=== PATIENT | female | born 1935 | race Caucasian/White ===

== ENCOUNTER 2016-08-19 15:08 | Outpatient (CLI) | payer MEDICARE | END 2016-08-19 15:09 | disposition home or self-care (01) | DX: M79.604 Pain in right leg (principal); I83.90 Asymptomatic varicose veins of unspecified lower extremity; M79.605 Pain in left leg ==

== ENCOUNTER 2016-10-25 11:20 | Outpatient (CLI) | payer MEDICARE ==
--- NOTE | 2016-10-25 12:36 | XRAY Report ---
THREE-VIEW LUMBAR SPINE: 10/25/2016 CLINICAL INDICATION: Back pain. FINDINGS: AP, lateral, coned-down views of the lumbar spine demonstrate moderate degenerative disc a nd facet disease. There is no evidence of fracture or subluxation. Vascular calcifications and post operative changes are noted in the abdomen. IMPRESSION: MODERATE DEGENERATIVE CHANGES. JOB #: [id number] EXT JOB #:[id number]
== END 2016-10-25 11:21 | disposition home or self-care (01) ==
LOC: DI 11:20
PROVIDERS: ATTEND Internal Medicine
DX: M51.36 Other intervertebral disc degeneration, lumbar region (principal); M47.896 Other spondylosis, lumbar region
CPT/HCPCS: 72100

== ENCOUNTER 2017-09-26 13:08 | Outpatient (CLI) | payer MEDICARE ==
--- NOTE | 2017-09-26 18:11 | MRI Report ---
EXAM: MRI LUMBAR SPINE WITHOUT CONTRAST EXAM DATE: 09/26/2017 01:45 PM. CLINICAL HISTORY: Sciatica. COMPARISON: Radiographs 10/25/[address] abdomen and pelvis 01/15/2015. TECHNIQUE: Multiplanar, multisequence T1-weighted and fluid-sensitive sequences of the lumbar spine f rom T11 to S1 without contrast. Other: None. FINDINGS: Spinal Cord: The conus terminates at T12. The conus medullaris and cauda equina are unremarkable. Alignment: Mild convex right curvature of mid lumbar spine. No spondylolisthesis. Bone Marrow: Transitional anatomy noted with partial sacralization of L5 bilaterally. No gross fractu res or bone lesions. Moderate fatty endplate changes and minimal diskogenic edema at L3-L4, L4-L5, an d L5-S1. Disk Levels/Facets: Disk desiccation throughout. Moderate disk height loss at L3-L4 through L5-S1. T10-T11: Sagittal images only. Minimal disk bulge. Mild bilateral facet hypertrophy. No stenosis. T11-T12: Sagittal images only. Mild bilateral facet hypertrophy. No stenosis. T12-L1: Sagittal images only. Minimal disk bulge. Mild bilateral facet and ligamentum flavum hypertro phy. Minimal central canal stenosis. L1-L2: Small bilobed disk bulge. Mild bilateral facet and ligamentum flavum hypertrophy. Minimal cent ral canal stenosis. Mild bilateral neural foraminal stenosis. L2-L3: Small bilobed disk bulge. Moderate bilateral facet and ligamentum flavum hypertrophy. Minimal central canal stenosis. Mild bilateral neural foraminal stenosis. L3-L4: Small broad-based disk osteophyte complex, asymmetric to the left where there is a foraminal c omponent. Moderate bilateral facet and ligamentum flavum hypertrophy. Mild central canal stenosis. Di sk and left facet contacts and may impinge the traversing left L4 nerve root. Mild right and moderate left neural foraminal stenosis. L4-L5: Small disk osteophyte complex. Moderate bilateral facet and ligamentum flavum hypertrophy. Mil d central canal stenosis. Disk and hypertrophied facets contact and may impinge the traversing right L5 nerve root. Mild bilateral neural foraminal stenosis. L5-S1: Small disk osteophyte complex. Mild bilateral facet hypertrophy. No stenosis. Musculature: Moderate fatty atrophy in the paraspinous and gluteal muscles. Minimal reactive edema ad jacent to the lower lumbar facets. Other: The partially visualized retroperitoneum is unremarkable. Degenerative changes partially visua lized at the sacroiliac joints. IMPRESSION: 1. Mild to moderate degenerative disk and facet changes. 2. Disk osteophyte complex and facet hypertrophy at L3-L4 result in mild central canal stenosis. Disk and left facet contact and may impinge the traversing left L4 nerve root. 3. Disk osteophyte complex and facet hypertrophy at L4-L5 result in mild central canal stenosis. Disk and hypertrophied right facet contacts and may impinge the traversing right L5 nerve root. 4. Varying degrees of neural foraminal stenosis, moderate at L3-L4 on the left. Comment: The following findings are so common in adults without low back pain that while we report th eir presence, they must be interpreted with caution and in the context of the clinical situation. (Re jose Murcia et al, Spine 2001) Prevalence of findings in patients without low back pain: Disk degeneration (any evidence): 92% Disk desiccation/T2 signal loss: 83% Disk height loss: 56% Disk bulge: 64% Disk protrusion: 32% Annular tear/high intensity zone: 38% [facility] Referring Provider Line: [phone] SITE ID: [id number]
== END 2017-09-26 13:09 | disposition home or self-care (01) ==
LOC: DI 13:08
PROVIDERS: ATTEND Internal Medicine
DX: M54.30 Sciatica, unspecified side (principal); M48.061 Spinal stenosis, lumbar region without neurogenic claudication
CPT/HCPCS: 72148

== ENCOUNTER 2018-09-25 11:22 | Outpatient (CLI) | payer MEDICARE ==
[2018-09-25 11:47] LABS: BASOPHILS % (AUTO) 0.5 %; EOSINOPHILS # (AUTO) 0.1 10^3/uL (0.0-0.7); EOSINOPHILS % (AUTO) 1.2 %; HGB - HEMOGLOBIN 12.7 g/dL (12.0-16.0); LYMPHOCYTES # (AUTO) 3.5 10^3/uL (1.5-3.5); LYMPHOCYTES % (AUTO) 36.1 %; MEAN CORPUSCULAR HEMOGLOBIN 28.3 pg (27.0-31.0); MEAN CORPUSCULAR HGB CONC 32.9 g/dL (32.0-36.0); MEAN CORPUSCULAR VOLUME 86.2 fL (81.0-99.0); MEAN PLATELET VOLUME 8.9 fL (7.9-10.8); MONOCYTES # (AUTO) 0.9 10^3/uL (0.0-1.0); MONOCYTES % (AUTO) 9.3 %; NEUTROPHILS # (AUTO) 5.1 10^3/uL (1.5-6.6); NEUTROPHILS % (AUTO) 52.9 %; PLT - PLATELET COUNT 260 10^3/uL (130-450); RED BLOOD COUNT 4.49 10^6/uL (4.20-5.40); RED CELL DISTRIBUTION WIDTH 13.5 % (12.0-15.0); WHITE BLOOD COUNT 9.6 x10^3/uL (4.8-10.8)
[2018-09-25 11:56] LABS: CREATININE 0.8 mg/dL (0.4-1.0)
== END 2018-09-25 11:23 | disposition home or self-care (01) ==
LOC: LAB 11:22
PROVIDERS: ATTEND Internal Medicine
DX: R53.83 Other fatigue (principal); R05 Cough; R07.89 Other chest pain; R00.2 Palpitations; R13.10 Dysphagia, unspecified; Z91.89 Other specified personal risk factors, not elsewhere classified; R60.9 Edema, unspecified; R06.01 Orthopnea
CPT/HCPCS: 36415; 80048; 83880; 84443; 85025

== ENCOUNTER 2018-09-29 09:14 | Outpatient (CLI) | payer MEDICARE ==
--- NOTE | 2018-09-29 10:50 | XRAY Report ---
Reason: COUGH, DYSPHAGIA ASPIRATION, PRESSURE IN CHEST Procedure Date: 09/29/2018 Accession Number: [id number] / [id number] Procedure: XR - Chest 2 View X-Ray CPT Code: 82540 FULL RESULT: EXAM: CHEST RADIOGRAPHY EXAM DATE: 09/29/2018 09:14 AM. CLINICAL HISTORY: Cough, dysphagia, aspiration, pressure in chest. COMPARISON: CHEST 2 VIEW PA/LAT 03/02/2015 3:26 PM. TECHNIQUE: 2 views. FINDINGS: Lungs/Pleura: No focal opacities evident. No pleural effusion. No pneumothorax. Mild hypoinflation with basilar vascular crowding. Mediastinum: Heart and mediastinal contours are unremarkable. Other: None. IMPRESSION: Normal 2-view chest radiography. [facility]
== END 2018-09-29 09:15 | disposition home or self-care (01) ==
LOC: DI 09:14
PROVIDERS: ATTEND Internal Medicine
DX: R05 Cough (principal)
CPT/HCPCS: 71046

== ENCOUNTER 2018-10-26 10:14 | Outpatient (CLI) | payer MEDICARE ==
--- NOTE | 2018-10-26 13:13 | CARDIAC PROCEDURE NOTE ---
DATE OF SERVICE: 10/26/2018 Physician: Ijeoma Rodriges MD EXERCISE CARDIOLITE PROTOCOL: Modified Manolo. TIME: Four minutes 23 seconds, METs was 3.10. REASON FOR STOPPING TEST: "Tired." HEART RATE RESPONSE: 70 to maximum 129. Blood pressure response 181/83 to maximum 196/87. No chest pain. No dyspnea. ST SEGMENT RESPONSE: No significant ST-segment elevations or depressions ARRHYTHMIAS: Occasional PVC detected. IMPRESSION: No symptoms. No significant EKG changes. CONCLUSION: Await imaging studies. TD: 10/26/2018 12:57 MTDD
--- NOTE | 2018-11-04 08:48 | Nuclear Medicine Report ---
Reason: PRESSURE IN CHEST, DYSPNEA Procedure Date: 10/26/2018 Accession Number: [id number] / [id number] Procedure: NM - Myocardial Perfusion STR/RST CPT Code: FULL RESULT: EXAM: SINGLE-ISOTOPE EXERCISE STRESS TEST. SINGLE-ISOTOPE AND ONE-DAY REST/STRESS MYOCARDIAL PERFUSION SCANS WITH TOMOGRAPHIC IMAGING, QUANTITATIVE ANALYSIS, WALL MOTION ANALYSIS AND CALCULATION OF EJECTION FRACTION. EXAM DATE: 10/26/2018 02:52 PM. CLINICAL HISTORY: PRESSURE IN CHEST, DYSPNEA. COMPARISON: None available. TECHNIQUE: A rest myocardial perfusion scan was done with tomography after the intravenous administration of 10.3 mCi Tc-99m sestamibi. After an appropriate delay, a treadmill exercise stress was performed according to department protocol. The patient exercised for 4 minutes and 23 seconds. The maximum heart rate was 129 bpm, which was 93% of the maximum predicted heart rate of 138 bpm. At approximately peak heart rate, 44.1 mCi of Tc-99m sestamibi was injected for stress myocardial perfusion scan. Motion correction was applied when appropriate. Gated tomographic images were obtained for wall motion analysis and computation of left ventricular ejection fraction. FINDINGS: On visual analysis, no convincing significant fixed or reversible perfusion defects. Computer analysis. Summed stress score 1 Summed rest score 0 Summed difference score 1 Wall motion analysis demonstrates no focal wall motion abnormality. The left ventricular end-diastolic volume is 47 cc. The left ventricular end-systolic volume is 3 cc. The left ventricular ejection fraction is calculated to be 93%. IMPRESSION: 1. No scintigraphic findings to indicate myocardial ischemia. Negative for infarct. 2. Normal left ventricular ejection fraction of 3. Normal segmental and global wall motion. 4. Normal left ventricular cavity size, no change with stress. 5. Based on computer analysis, normal study with no ischemia. Please correlate findings with stress ECG tracings and procedure notes. [facility] ADDENDUM: 11/04/18 10:48 This exam is dated 10/26/2018 but was made available for interpretation 11/04/2018
== END 2018-10-26 10:15 | disposition home or self-care (01) ==
LOC: DI 10:14
PROVIDERS: ATTEND Internal Medicine
DX: R13.10 Dysphagia, unspecified (principal); R07.89 Other chest pain; R06.00 Dyspnea, unspecified
CPT/HCPCS: 78452; 93017; A9500

== ENCOUNTER 2018-11-02 09:39 | Outpatient (CLI) | payer MEDICARE ==
--- NOTE | 2018-11-02 11:41 | XRAY Report ---
Reason: COUGH Procedure Date: 11/02/2018 Accession Number: [id number] / [id number] Procedure: FL - Modified Barium Swallow W/SP CPT Code: FULL RESULT: EXAM: MODIFIED BARIUM SWALLOW EXAM DATE: 11/02/2018 11:00 AM. CLINICAL HISTORY: Cough. COMPARISON: None. TECHNIQUE: Under the direction of speech pathology, patient swallowed various consistencies of barium under lateral fluoroscopic observation of the neck. Fluoroscopy Time: 45 seconds. Number of Images: 87. FINDINGS: Swallowing Mechanism: Delayed initiation, otherwise normal oral phase and swallowing reflex. Airway Protection: Normal epiglottic motion. No episodes of tracheal penetration or aspiration with all consistencies of barium. Pharynx: Normal. No significant vallecular or piriform sinus contrast pooling. Other: None. IMPRESSION: Delayed initiation with otherwise normal swallowing. No aspiration identified. [facility]
== END 2018-11-02 09:40 | disposition home or self-care (01) ==
LOC: DI 09:39
PROVIDERS: ATTEND Internal Medicine
DX: R13.10 Dysphagia, unspecified (principal); R05 Cough
CPT/HCPCS: 74230

== ENCOUNTER 2019-02-04 09:47 | Emergency (ER) | payer MEDICARE ==
[2019-02-04 10:12] LABS: BILIRUBIN,URINE NEGATIVE (NEGATIVE); GLUCOSE, URINE (UA) NEGATIVE (NEGATIVE); KETONES,URINE (UA) NEGATIVE (NEGATIVE); LEUKOCYTE ESTERASE, URINE TRACE (NEGATIVE); NITRITE,URINE NEGATIVE (NEGATIVE); OCCULT BLOOD,URINE NEGATIVE (NEGATIVE); PH,URINE 5.5 PH (5.0-7.5); PROTEIN,URINE NEGATIVE (NEGATIVE); UROBILINOGEN,URINE 0.2 (NORMAL) E.U./dL (NORMAL)
[2019-02-04 10:13] LABS: CLARITY,URINE CLEAR (CLEAR)
[2019-02-04 10:21] LABS: BACTERIA,URINE Rare /HPF (None Seen); RBC,URINE None Seen /HPF (0-5); SQUAMOUS EPITHELIAL CELL,UR MOD Squamous (<= Few)
[2019-02-04] MEDS ORDERED: LIDOCAINE 1% 2 ML VIAL MC ONE (10:29)
[2019-02-04] MEDS ORDERED: cefTRIAXone 1 GM VIAL IM STA (10:29)
--- NOTE | 2019-02-04 10:31 | ED Physician Documentation ---
PD HPI FEMALE - Stated complaint Stated Complaint: BACK PX - Chief complaint Chief Complaint: UTI - History obtained from History obtained from: Patient, Family - History of Present Illness Timing - onset: How many weeks ago (2) Timing - duration: Weeks (2) Timing - details: Gradual onset, Still present Associated symptoms: Back pain, Dysuria, Urinary frequency Contributing factors: Hysterectomy Similar symptoms before: Diagnosis (UTI) Recently seen: Not recently seen - Additional information Additional information: Previously well 83-year-old female has developed urinary urgency and frequency she has some lower abdominal pain that is now radiating to her back. She has some nausea associated with this she has not had fever or vomiting. Review of Systems Constitutional: denies: Fever Eyes: denies: Decreased vision Cardiac: denies: Pedal edema Respiratory: denies: Cough GI: reports: Abdominal Pain, Nausea. 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, Other HEENT: Cataracts - Present Medications Home Medications: Ambulatory Orders Medication Instructions Recorded Confirmed Clopidogrel [Plavix] 75 mg PO DAILY 06/10/15 10/25/15 Omeprazole [PriLOSEC] 40 mg PO DAILY 06/10/15 10/27/15 Ciprofloxacin HCl [Cipro] 250 mg PO BID #14 tablet 02/04/19 - Allergies Allergies/Adverse Reactions: Allergies Allergy/AdvReac Type Severity Reaction Status Date / Time aspirin Allergy CONJUNCTIVI Verified 02/04/19 09:50 TIS Sulfa (Sulfonamide Allergy SWELLING Verified 02/04/19 09:50 Antibiotics) Oral Narcotics AdvReac Intermediate Severe Uncoded 07/19/15 10:41 nausea and constipation - Social History Does the pt smoke?: No Smoking Status: Never smoker Does the pt drink ETOH?: No Does the pt have substance abuse?: No - Immunizations Immunizations are current?: No - POLST Patient has POLST: No PD ED PE NORMAL - Vitals Vital signs reviewed: Yes (hypertensive ) - General General: Alert and oriented X 3, No acute distress, Well developed/nourished - HEENT HEENT: Atraumatic, PERRL, EOMI - Respiratory Respiratory: No respiratory distress - Back Back: No CVA TTP, No spinal TTP, Other (There is mild tendernes to the lower lumbar spine ) - Derm Derm: Normal color, Warm and dry, No rash - Extremities Extremities: No deformity, No edema - Neuro Neuro: Alert and oriented X 3, 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, No motor deficit, No sensory deficit, Normal speech Eye Opening: Spontaneous Motor: Obeys Commands Verbal: Oriented GCS Score: 15 - Psych Psych: Normal mood, Normal affect Results - Vitals Vitals: Vital Signs - 24 hr 02/04/19 09:50 Temperature 36.6 C Heart Rate 84 Respiratory 16 Rate Blood Pressure 185/80 H O2 Saturation 100 Oxygen O2 Source [Without Activity] Room air O2 Source Room air - Labs Labs: Laboratory Tests 02/04/19 10:00 Urine Color YELLOW Urine Clarity CLEAR Urine pH 5.5 Ur Specific [place] <=1.005 Urine Protein NEGATIVE Urine Glucose (UA) NEGATIVE Urine Ketones NEGATIVE Urine Occult Blood NEGATIVE Urine Nitrite NEGATIVE Urine Bilirubin NEGATIVE Urine Urobilinogen 0.2 (NORMAL) Ur Leukocyte Esterase TRACE H Urine RBC None Seen Urine WBC 6-10 H Ur Squamous Epith Cells MOD Squamous H Urine Bacteria Rare Ur Microscopic Review INDICATED Urine Culture Comments NOT INDICATED PD MEDICAL DECISION MAKING - ED course Complexity details: considered differential, d/w patient, d/w family ED course: 83-year-old female with urinary tract symptoms has appearance of urinary tract infection on evaluation of her urine and she is allergic to sulfa and has a history of septal defect. She is given Rocephin here in the emergency department we will place her on a course of Cipro. Departure - Departure Disposition: 01 Home, Self Care Clinical Impression: Urinary tract infection Qualifiers: Urinary tract infection type: acute cystitis Hematuria presence: without hematuria Qualified Code(s): N30.00 - Acute cystitis without hematuria Condition: Stable Instructions: ED UTI Cystitis Female Follow-Up: Ijeoma Rodriges MD [Primary Care Provider] - Prescriptions: Ciprofloxacin HCl [Cipro] 250 mg PO BID #14 tablet
[2019-02-04 10:50] VITALS: BP 138/81
== END 2019-02-04 10:53 | disposition home or self-care (01) ==
LOC: ED 09:47
DX: N30.00 Acute cystitis without hematuria (principal); I10 Essential (primary) hypertension; Z86.79 Personal history of other diseases of the circulatory system; Z88.2 Allergy status to sulfonamides
CPT/HCPCS: 81001; 81003; 87086; 96372; 99283

== ENCOUNTER 2019-04-28 22:16 | Outpatient (CLI) | payer MEDICARE | END 2019-04-28 22:17 | disposition critical access hospital (66) | LOC: EMS 22:16 | PROVIDERS: ATTEND Surgery | DX: R10.30 Lower abdominal pain, unspecified (principal); Z90.49 Acquired absence of other specified parts of digestive tract | CPT/HCPCS: A0425; A0429 ==

== ENCOUNTER 2019-04-28 22:34 | Emergency (ER) | payer MEDICARE ==
--- NOTE | 2019-04-28 22:46 | ED Physician Documentation ---
History of Present Illness - Stated complaint Stated Complaint: ABD PAIN - Chief complaint Chief Complaint: Abd Pain - Additonal information Additional information: This is an 84-year-old female with a history Appendectomy, cholecystectomy, hysterectomy, past bowel resections who presents with abdominal pain for 4 hours. Patient states that this week she has had some intermittent abdominal cramping, but it has been temporary and resolved. At around 18:30 she developed sudden onset of sharp abdominal pain which is located diffusely but more so in her periumbilical region. This was associate with some nausea but she did not vomit. She has continued to have normal bowel movements without blood. She states that the pain was severe and persistent so she came to the emergency department, now it has calmed down is a 5/10.No chest pain, no shortness of breath, no dysuria. No fever. Review of Systems Constitutional: denies: Fever Cardiac: denies: Chest pain / pressure Respiratory: denies: Dyspnea GI: reports: Abdominal Pain : denies: Dysuria Skin: denies: Rash Neurologic: denies: Generalized weakness Immunocompromised: denies: Immunocompromised PD PAST MEDICAL HISTORY - Past Medical History Past Medical History: Yes Cardiovascular: Hypertension, High cholesterol, Murmur Respiratory: None Endocrine/Autoimmune: None GI: GERD : Other HEENT: Dental implants Psych: Anxiety Musculoskeletal: Osteoarthritis, Osteoporosis Derm: None - Past Surgical History Past Surgical History: Yes General: Cholecystectomy, Appendectomy, Bowel surgery, Colonoscopy, EGD 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, Other HEENT: Cataracts - Present Medications Home Medications: Ambulatory Orders Medication Instructions Recorded Confirmed Clopidogrel [Plavix] 75 mg PO DAILY 06/10/15 10/25/15 Omeprazole [PriLOSEC] 40 mg PO DAILY 06/10/15 10/27/15 Ciprofloxacin HCl [Cipro] 250 mg PO BID #14 tablet 02/04/19 - Allergies Allergies/Adverse Reactions: Allergies Allergy/AdvReac Type Severity Reaction Status Date / Time aspirin Allergy CONJUNCTIVI Verified 04/28/19 22:36 TIS Sulfa (Sulfonamide Allergy SWELLING Verified 04/28/19 22:36 Antibiotics) Oral Narcotics AdvReac Intermediate Severe Uncoded 04/28/19 22:36 nausea and constipation - Social History Does the pt smoke?: No Smoking Status: Never smoker Does the pt drink ETOH?: No Does the pt have substance abuse?: No - Immunizations Immunizations are current?: No - POLST Patient has POLST: No PD ED PE NORMAL - Vitals Vital signs reviewed: Yes - General General: Alert and oriented X 3, No acute distress - HEENT HEENT: PERRL - Neck Neck: Supple, no meningeal sign - Cardiac Cardiac: RRR, No murmur - Respiratory Respiratory: Clear bilaterally - Abdomen Abdomen: Soft, Non distended, Other (Mild tenderness in the periumbilical region and mid abdomen, no Guarding) - Derm Derm: Warm and dry - Extremities Extremities: No deformity - Neuro Neuro: Alert and oriented X 3 - Psych Psych: Normal mood, Normal affect Results - Vitals Vitals: Vital Signs - 24 hr 04/28/19 04/28/19 04/29/19 22:36 22:40 00:56 Temperature 36.6 C Heart Rate 84 74 76 Respiratory 14 14 23 Rate Blood Pressure 175/96 H 175/96 H 143/79 H O2 Saturation 96 96 95 04/29/19 01:25 Temperature Heart Rate 80 Respiratory 16 Rate Blood Pressure 141/62 H O2 Saturation 94 Oxygen O2 Source [] Room air O2 Source Room air - Labs Labs: Laboratory Tests 04/28/19 04/28/19 04/29/19 22:55 22:55 00:36 WBC 10.1 RBC 4.25 Hgb 12.2 Hct 37.1 MCV 87.3 MCH 28.7 MCHC 32.9 RDW 13.0 Plt Count 243 MPV 10.8 Neut # (Auto) 5.9 Lymph # (Auto) 2.9 [place] # (Auto) 1.0 Eos # (Auto) 0.2 Baso # (Auto) 0.0 Absolute Nucleated RBC 0.00 Nucleated RBC % 0.0 Sodium 137 Potassium 3.7 Chloride 103 Carbon Dioxide 25 Anion Gap 9.0 BUN 18 Creatinine 0.7 Estimated GFR (MDRD) 80 L Glucose 124 H Calcium 8.8 Total Bilirubin 0.8 AST 16 ALT 16 Alkaline Phosphatase 56 Total Protein 6.7 Albumin 3.8 Globulin 2.9 Albumin/Globulin Ratio 1.3 Lipase 26 Urine Color YELLOW Urine Clarity CLEAR Urine pH 6.5 Ur Specific [place] <=1.005 Urine Protein NEGATIVE Urine Glucose (UA) NEGATIVE Urine Ketones NEGATIVE Urine Occult Blood NEGATIVE Urine Nitrite NEGATIVE Urine Bilirubin NEGATIVE Urine Urobilinogen 0.2 (NORMAL) Ur Leukocyte Esterase NEGATIVE Ur Microscopic Review NOT INDICATED Urine Culture Comments NOT INDICATED - Rads (name of study) CT abd/pelvis W Radiology: Other (Small bilateral Fat-containing inguinal hernias, mild dilatation of fluid-filled mid and distal small bowel loops without evidence of an abrupt transition, more compatible with enteritis than obstruction) PD MEDICAL DECISION MAKING - ED course Complexity details: considered differential (Obstruction, partial bowel obstruction, enteritis, pancreatitis, gastritis, peptic ulcer disease) ED course: Patient is non-toxic appearing, mildly uncomfortable on my exam. Her abdomen is mildly tender in the mid abdomen. IV was inserted, labs are drawn and she was given Zofran. Her CBC is unremarkable with no leukocytosis or anemia. Her abdominal panel is unremarkable, lipase is normal, urinalysis is negative for infection. CT of the abdomen pelvis with contrast was obtained which showed some mildly dilated small bowel loops, but no transition points, no convincing signs of obstruction or other acute abdominal pathology. On repeat examination patient continues to feel well, her abdomen is benign, and she is not nauseated. I discussed the results, and explained that I am not sure exactly what the cause of her abdominal pain was, it might be that she has an early enteritis, it is also possible that she had the start of partial small bowel obstruction which has since improved. Given that she is feeling well I think she is reasonable for trial of outpatient care, I prescribed Zofran and recommended adequate fluids. I reviewed return precautions with the patient including worsening or recurrent abdominal pain, vomiting, fever, or other concerning symptoms. I also discussed primary care follow-up. Patient agreed with this plan and was discharged home in the care of her family Departure - Departure Disposition: 01 Home, Self Care Clinical Impression: Abdominal pain Qualifiers: Abdominal location: generalized Qualified Code(s): R10.84 - Generalized abdominal pain Condition: Good Instructions: Abdominal Pain Follow-Up: Ijeoma Rodriges MD [Primary Care Provider] - Within 1 week Comments: You were seen today for abdominal pain. Your CT scan shows some mildly dilated loops of bowel, which may be secondary to an infection, or is possible that you may have had a mild obstruction. If you are having vomiting despite nausea medication, increasing abdominal pain, blood in your stool, or any other concerning symptoms, return to the emergency department. Discharge Date/Time: 04/29/19 01:26
[2019-04-28] MEDS ORDERED: fentaNYL 100 MCG/2 ML VIAL IVP STA (22:52)
[2019-04-28] MEDS ORDERED: ONDANSETRON 4 MG/2 ML VIAL IVP STA (22:52)
[2019-04-28 22:59] LABS: BASOPHILS % (AUTO) 0.4 %; EOSINOPHILS # (AUTO) 0.2 10^3/uL (0.0-0.7); EOSINOPHILS % (AUTO) 2.1 %; HGB - HEMOGLOBIN 12.2 g/dL (12.0-16.0); LYMPHOCYTES # (AUTO) 2.9 10^3/uL (1.5-3.5); LYMPHOCYTES % (AUTO) 28.5 %; MEAN CORPUSCULAR HEMOGLOBIN 28.7 pg (27.0-31.0); MEAN CORPUSCULAR HGB CONC 32.9 g/dL (32.0-36.0); MEAN CORPUSCULAR VOLUME 87.3 fL (81.0-99.0); MEAN PLATELET VOLUME 10.8 fL (7.9-10.8); MONOCYTES % (AUTO) 9.7 %; NEUTROPHILS # (AUTO) 5.9 10^3/uL (1.5-6.6); NEUTROPHILS % (AUTO) 58.8 %; PLT - PLATELET COUNT 243 10^3/uL (130-450); RED BLOOD COUNT 4.25 10^6/uL (4.20-5.40); WHITE BLOOD COUNT 10.1 x10^3/uL (4.8-10.8)
[2019-04-28] MEDS ORDERED: IOVERSOL 320 100 ML VIAL IVP ONE ×2 (23:03→23:40)
[2019-04-28 23:14] LABS: ALBUMIN 3.8 g/dL (3.2-5.5); ALBUMIN/GLOBULIN RATIO 1.3 (1.0-2.2); BILIRUBIN,TOTAL 0.8 mg/dL (0.2-1.0); CALCIUM 8.8 mg/dL (8.5-10.3); CREATININE 0.7 mg/dL (0.4-1.0); TOTAL PROTEIN 6.7 g/dL (6.7-8.2)
--- NOTE | 2019-04-29 00:05 | CT Report ---
Reason: hx bowel resections, sharp abdominal pain for 4hrs Procedure Date: 04/28/2019 Accession Number: [id number] / [id number] Procedure: CT - Abdomen/Pelvis W CPT Code: Final Report FULL RESULT: EXAM: CT ABDOMEN AND PELVIS EXAM DATE: 04/28/2019 11:41 PM. CLINICAL HISTORY: Hx bowel resections, sharp abdominal pain for 4hrs. COMPARISONS: ABDOMEN/PELVIS W/ 01/15/2015 3:43 PM. TECHNIQUE: Routine helical CT imaging was performed through the abdomen and pelvis. IV contrast: OPTI 320 100ML. Enteric contrast: No. Reconstructions: Coronal and sagittal. In accordance with CT protocol optimization, one or more of the following dose reduction techniques were utilized for this exam: automated exposure control, adjustment of mA and/or KV based on patient size, or use of iterative reconstructive technique. FINDINGS: Lung Bases: Mild bronchiectasis and basilar atelectasis. Liver: Stable hepatic cysts. Gallbladder/Bile Ducts: Postoperative changes of cholecystectomy. No biliary dilatation. Spleen: Normal. Pancreas: Normal. Adrenal Glands: Normal. Kidneys: Normal. No masses or hydronephrosis. Peritoneal Cavity/Bowel: There is mild dilatation of fluid-filled mid and distal small bowel loops, without abrupt transition, more compatible with enteritis than mechanical obstruction. No colonic dilatation. No adenopathy, free gas, or free fluid. Postoperative changes in the sigmoid colon. Pelvic Organs: Postoperative changes of hysterectomy. No pelvic adenopathy or free fluid. Vasculature: Atherosclerotic calcification. No aneurysm. Bones: Degenerative changes. Other: Small bilateral inguinal hernias, containing fat. IMPRESSION: Mild dilatation of fluid-filled mid and distal small bowel loops, without evidence of an abrupt transition, more compatible with enteritis than a mechanical obstruction. Postoperative changes. [facility]
[2019-04-29 01:02] LABS: BILIRUBIN,URINE NEGATIVE (NEGATIVE); GLUCOSE, URINE (UA) NEGATIVE (NEGATIVE); KETONES,URINE (UA) NEGATIVE (NEGATIVE); LEUKOCYTE ESTERASE, URINE NEGATIVE (NEGATIVE); NITRITE,URINE NEGATIVE (NEGATIVE); OCCULT BLOOD,URINE NEGATIVE (NEGATIVE); PH,URINE 6.5 PH (5.0-7.5); PROTEIN,URINE NEGATIVE (NEGATIVE); UROBILINOGEN,URINE 0.2 (NORMAL) E.U./dL (NORMAL)
[2019-04-29 01:06] LABS: CLARITY,URINE CLEAR (CLEAR)
[2019-04-29] MEDS ORDERED: ONDANSETRON ODT 4 MG Prepack 2 TL PRN (01:13)
[2019-04-29 01:26] VITALS: BP 141/62
== END 2019-04-29 01:26 | disposition home or self-care (01) ==
LOC: EDUNIT# → ED 22:34
DX: R10.84 Generalized abdominal pain (principal); R11.0 Nausea; K40.20 Bilateral inguinal hernia, without obstruction or gangrene, not specified as recurrent; I10 Essential (primary) hypertension; Z90.49 Acquired absence of other specified parts of digestive tract; Z79.02 Long term (current) use of antithrombotics/antiplatelets
CPT/HCPCS: 36415; 74177; 80053; 81003; 83690; 85025; 96374; 99284; Q9967; 81001; 87086

== ENCOUNTER 2019-05-20 10:40 | Day surgery (SDC) | payer MEDICARE ==
[~2019-05-20 10:40] MED LIST: SODIUM/POTASSIUM/MAG SULFATES 354 ML PREP KIT PO SCH
[2019-05-20] MEDS ORDERED: LACTATED RINGERS 1,000 ML IV ONE (10:45)
[2019-05-20] MEDS ORDERED: fentaNYL 100 MCG/2 ML VIAL IVP ONE (12:08)
[2019-05-20] MEDS ORDERED: ONDANSETRON 4 MG/2 ML VIAL IVP ONE (12:08)
[2019-05-20] MEDS ORDERED: MIDAZOLAM 2 MG/2 ML VIAL IVP ONE (12:08)
[2019-05-20] MEDS ORDERED: LIDO GARGLE 30 ML BOTTLE PO ONE (12:31)
[2019-05-20 13:33] VITALS: BP 106/60
== END 2019-05-20 10:41 | disposition home or self-care (01) ==
LOC: SDS 10:40
PROVIDERS: ATTEND Surgery
PROC: 0DJD8ZZ Inspection of Lower Intestinal Tract, Via Natural or Artificial Opening Endoscopic (ICD-10-PCS; 2019-05-20)
PROC: 0DB98ZX Excision of Duodenum, Via Natural or Artificial Opening Endoscopic, Diagnostic (ICD-10-PCS; principal; 2019-05-20 12:30)
PROC: 0DB68ZX Excision of Stomach, Via Natural or Artificial Opening Endoscopic, Diagnostic (ICD-10-PCS; 2019-05-20 12:30)
DX: K29.70 Gastritis, unspecified, without bleeding (principal); K31.89 Other diseases of stomach and duodenum; K44.9 Diaphragmatic hernia without obstruction or gangrene; K52.9 Noninfective gastroenteritis and colitis, unspecified; Z90.49 Acquired absence of other specified parts of digestive tract; Z79.02 Long term (current) use of antithrombotics/antiplatelets; Z90.710 Acquired absence of both cervix and uterus; Z98.0 Intestinal bypass and anastomosis status

== ENCOUNTER 2019-06-04 10:13 | Outpatient (CLI) | payer MEDICARE ==
[2019-06-04] MEDS ORDERED: BARIUM SULFATE 135 ML BOTTLE PO ONE (14:31)
[2019-06-04] MEDS ORDERED: SIMETHICONE/SOD BICARB/CIT AC 1 EACH PACKET PO ONE (14:31)
[2019-06-04] MEDS ORDERED: BARIUM SULFATE 700 MG TABLET PO ONE (14:31)
[2019-06-04] MEDS ORDERED: BARIUM SULFATE 148 GM POWDER PO ONE (14:31)
--- NOTE | 2019-06-04 15:27 | XRAY Report ---
Reason: ABD BLOATING Procedure Date: 06/04/2019 Accession Number: [id number] / [id number] Procedure: FL - UGI SBFT W/O Air CPT Code: Final Report FULL RESULT: EXAM: UPPER GI WITH SMALL BOWEL FOLLOW-THROUGH EXAM DATE: 06/04/2019 12:57 PM. CLINICAL HISTORY: Abdominal bloating. COMPARISONS: XR ACUTE ABDOMEN SERIES 01/17/2009 3:14 AM. TECHNIQUE: Routine double contrast upper gastrointestinal small bowel follow-through technique. Fluoroscopy Time: 45 seconds. Number of fluoroscopy images: 23. FINDINGS: Swallowing Mechanism: Normal oral phase and swallowing reflex. No episodes of tracheal penetration or aspiration evident. Esophageal Motility: Normal peristaltic stripping wave. Esophageal Mucosa: Normal. No ulcerations or masses. Gastroesophageal Junction: No hernia. Meaningful spontaneous reflux. Stomach: Normal gastric mucosal pattern. No ulcers identified. Duodenum: Normal duodenal mucosal pattern. No ulcers or diverticula identified. Jejunum: Normal mucosal pattern. No masses or obstruction. Ileum: Normal mucosal pattern. No masses or obstruction. The ileocecal valve is patent and competent with passage of contrast into the cecum. Other: Rapid transit of bowel content from stomach to large bowel. IMPRESSION: Spontaneous reflux and rapid progression of contrast to the large bowel, 15 minutes. [facility]
== END 2019-06-04 10:14 | disposition home or self-care (01) ==
LOC: DI 10:13
PROVIDERS: ATTEND Surgery
DX: R14.0 Abdominal distension (gaseous) (principal); K21.9 Gastro-esophageal reflux disease without esophagitis
CPT/HCPCS: 74245; A9270

== ENCOUNTER 2019-06-30 10:20 | Outpatient (CLI) | payer MEDICARE | END 2019-06-30 10:21 | disposition home or self-care (01) | LOC: DI 10:20 | PROVIDERS: ATTEND Internal Medicine | DX: I48.3 Typical atrial flutter (principal); I48.91 Unspecified atrial fibrillation | CPT/HCPCS: 93306 ==

== ENCOUNTER 2019-10-01 08:07 | Day surgery (SDC) | payer MEDICARE ==
[~2019-10-01 08:07] MED LIST changes: +CEFAZOLIN SODIUM IN 0.9 % NACL 2 GM/100 ML BAG IV ONE; -SODIUM/POTASSIUM/MAG SULFATES 354 ML PREP KIT PO SCH
[2019-10-01] MEDS ORDERED: ACETAMINOPHEN 1,000 MG/100 ML 100 ML IV ONE (08:08)
[2019-10-01] MEDS ORDERED: ONDANSETRON 4 MG/2 ML VIAL IVP ONE (08:08)
[2019-10-01] MEDS ORDERED: DEXAMETHASONE 4 MG/ML VIAL IVP ONE (08:08)
[2019-10-01] MEDS ORDERED: fentaNYL 100 MCG/2 ML VIAL IVP ONE (08:08)
[2019-10-01] MEDS ORDERED: NEOSTIGMINE 1 MG/1 ML 10 ML MDV IVP ONE (08:08)
[2019-10-01] MEDS ORDERED: ePHEDrine 50 MG/ML VIAL IVP ONE (08:08)
[2019-10-01] MEDS ORDERED: METOPROLOL 5 MG/5 ML VIAL IVP ONE (08:08)
[2019-10-01] MEDS ORDERED: GLYCOPYRROLATE 1 MG/5 ML VIAL IVP ONE (08:08)
[2019-10-01] MEDS ORDERED: PROPOFOL 200 MG/20 ML VIAL IVP ONE (08:08)
[2019-10-01] MEDS ORDERED: ROCURONIUM 50 MG/5 ML VIAL IVP ONE (08:08)
[2019-10-01] MEDS ORDERED: BUPIVACAINE 0.5% PF 30 ML VIAL ONE (08:15)
[2019-10-01] MEDS ORDERED: LIDOCAINE 1%-EPI 1:100000 20 ML MDV ONE (08:15)
[2019-10-01] MEDS ORDERED: ceFAZolin 1 GM VIAL ONE (08:15)
--- NOTE | 2019-10-01 08:18 | ANESTHESIA ---
Pre-Anesthesia VS, & Labs - Diagnosis bilateral inguinal hernia's - Procedure bilateral inguinal hernia repair Vital Signs: Temp Pulse Resp BP Pulse Ox 36.5 C 74 16 153/84 H 100 10/01/19 08:07 10/01/19 08:07 10/01/19 08:07 10/01/19 08:07 10/01/19 08:07 Height 5 ft 3 in Weight (kg) 75 kg Body Mass Index 27.4 - NPO >8 hours - Is Patient ?: No Home Medications and Allergies Home Medications: Ambulatory Orders Carvedilol 12.5 mg PO DAILY 10/01/19 Clopidogrel [Plavix] 75 mg PO DAILY 06/10/15 Allergies/Adverse Reactions: Allergies Allergy/AdvReac Type Severity Reaction Status Date / Time aspirin Allergy CONJUNCTIVI Verified 07/09/19 14:08 TIS Sulfa (Sulfonamide Allergy SWELLING Verified 07/09/19 14:08 Antibiotics) Anes History & Medical History - Anesthetic History Anesthesia Complications: reports: No previous complications - Medical History Cardiovascular: reports: Hypertension, High cholesterol, Murmur, Arrhythmia Pulmonary: reports: None Gastrointestinal: reports: GERD, Hiatal hernia Urinary: reports: Other Musculoskeletal: reports: Osteoarthritis, Osteoporosis, Chronic back pain Endocrine/Autoimmune: reports: None Blood Disorders: reports: None Skin: reports: None Smoking Status: Never smoker - Surgical History General: Cholecystectomy, Appendectomy, Bowel surgery, Colonoscopy, EGD Eyes Ears Nose Throat (EENT): Cataracts Urologic: Bladder surgery Gynecologic: Hysterectomy, Other Orthopedic: Knee replacement Results - EKG Results EKG Comparison: Reviewed EKG, Normal EKG - Echo Results Echo Results: Report reviewed (normal) Exam General: Alert Dental: WNL Mouth Opening: Greater than 4 Fingerbreadths Mallampati classification: II Respiratory: Lungs clear Cardiovascular: Regular rate, Normal S1, Normal S2 Plan Anesthesia Type: General Consent for Procedure(s) Verified and Reviewed: Yes Code Status: Attempt Resuscitation ASA classification: 2-Mild systemic disease Is this case an emergency?: No
[2019-10-01] MEDS ORDERED: LACTATED RINGERS 1,000 ML IV ONE ×2 (08:23→11:12)
[2019-10-01] MEDS ORDERED: ceFAZolin 1 GM VIAL IR ONE (08:28)
[2019-10-01] MEDS ORDERED: LIDOCAINE 1%-EPI 1:100000 20 ML MDV SUBQ ONE ×2 (08:30)
[2019-10-01] MEDS ORDERED: BUPIVACAINE 0.5% PF 30 ML VIAL INFIL ONE ×2 (08:32)
--- NOTE | 2019-10-01 10:50 | OPERATIVE REPORT ---
Operative Report - General Procedure Date: 10/01/19 Planned Procedure: Bilateral inguinal hernia repair Pre-Op Diagnosis: Bilateral inguinal hernias with intermittent obstruction Procedure Performed: Bilateral inguinal hernia repair Post Op Diagnosis: Bilateral Direct Inguinal Hernias - Procedure Note Primary Surgeon: Lars Anesthesia Provider: LORIN Finch Anesthesia Technique: General ET tube, Local, Regional block Pathology: None IV Fluids (mL): 700 Estimated Blood Loss (mL): 10 Findings: Bilateral large direct inguinal defects Complications: None apparent - Other Other Information/Narrative: After obtaining informed consent, the patient is brought to the operating room and placed in the supine position on the operating table. Following successful induction of general endotracheal anesthesia, appropriate padding of all bony prominences, and placement of appropriate monitors, the abdomen was prepped and draped in the standard surgical fashion. A timeout was held per scope protocol. All elements of the surgical safety checklist were followed before, during, and after the procedure. We began the procedure by infiltrating a mixture of local anesthetics medial to the anterior superior iliac spine on the left. This was done to create an ileal inguinal nerve block. We then selected a site for an incision in the right lower quadrant just superior and lateral to the left pubic tubercle. This area was anesthetized with additional local anesthetic and an incision was created here.The incision was carried down through the skin and subcutaneous tissue to reveal the fascia of the external oblique aponeurosis. Retractor was placed and the aponeurosis was opened in direction of its fibers. The ilioinguinal nerve was immediately identified. We continued by identifying the round ligament and the ilioinguinal nerve. The round ligament was divided between hemostats and ligated. The defect was identified lateral to the inferior epigastric vessels. The hernia contents were placed back into the abdominal cavity. We elected to repair the hernia with a large Prolene hernia system mesh implant. This was dipped in Ancef containing solution and then deployed into the defect. The posterior leaflet was straightened and flattened in the preperitoneal space. The more inferior aspect of the anterior leaflet was then sewn to Carlos Alberto's ligament medially. Laterally it was tucked under the external beak aponeurosis. The wound was checked for hemostasis and irrigated with warm saline solution. It was aspirated free of all fluid and particulate matter. The extra oblique aponeurosis was then closed with a running locking Vicryl suture Mey's fascia was closed with Vicryl suture and Monocryl stitches were placed in the skin. We continued the procedure on the right. Again, began the procedure by infiltrating a mixture of local anesthetics medial to the anterior superior iliac spine on the right. This was done to create an ileal inguinal nerve block. We then selected a site for an incision in the right lower quadrant just superior and lateral to the right pubic tubercle. This area was anesthetized with additional local anesthetic and an incision was created here.The incision was carried down through the skin and subcutaneous tissue to reveal the fascia of the external oblique aponeurosis. Retractor was placed and the aponeurosis was opened in direction of its fibers. The ilioinguinal nerve was immediately identified. We continued by identifying the round ligament and the ilioinguinal nerve. The round ligament was divided between hemostats and ligated. The defect was identified lateral to the inferior epigastric vessels. The hernia contents were placed back into the abdominal cavity. We elected to repair the hernia with a large Prolene hernia system mesh implant. This was dipped in Ancef containing solution and then deployed into the defect. The posterior leaflet was straightened and flattened in the preperitoneal space. The more inferior aspect of the anterior leaflet was then sewn to Carlos Alberto's ligament medially. Laterally it was tucked under the external beak aponeurosis. The wound was checked for hemostasis and irrigated with warm saline solution. It was aspirated free of all fluid and particulate matter. The extra oblique aponeurosis was then closed with a running locking Vicryl suture Mey's fascia was closed with Vicryl suture and Monocryl stitches were placed in the skin. All sponge, needle, and instrument counts were correct at the conclusion of the case. The patient was allowed awaken from anesthesia without difficulty and taken to the postanesthesia care unit in good condition.
[2019-10-01] MEDS ORDERED: ACETAMINOPHEN 325 MG TABLET PO PRN (10:57)
[2019-10-01] MEDS ORDERED: IBUPROFEN 600 MG TABLET PO PRN (10:57)
[2019-10-01] MEDS ORDERED: oxyCODONE 5 MG TABLET PO PRN ×2 (10:57)
[2019-10-01] MEDS ORDERED: ONDANSETRON 4 MG/2 ML VIAL IVP PRN ×2 (10:57)
[2019-10-01 11:40] VITALS: BP 127/66
== END 2019-10-01 08:08 | disposition home or self-care (01) ==
LOC: SDS 08:07
PROVIDERS: ATTEND Surgery
PROC: 0YUA0JZ Supplement Bilateral Inguinal Region with Synthetic Substitute, Open Approach (ICD-10-PCS; principal; 2019-10-01 09:30)
DX: K40.20 Bilateral inguinal hernia, without obstruction or gangrene, not specified as recurrent (principal); I25.10 Atherosclerotic heart disease of native coronary artery without angina pectoris; I10 Essential (primary) hypertension
CPT/HCPCS: 49505; C1781; J0131; J0690; J7120

== ENCOUNTER 2020-07-03 15:07 | Outpatient (CLI) | payer MEDICARE ==
--- NOTE | 2020-07-03 15:52 | XRAY Report ---
PROCEDURE: Hip w/Pelvis 2-3V LT INDICATIONS: L HIP PAIN TECHNIQUE: AP pelvis with lateral view(s) of the bilateral hip(s). COMPARISON: None. FINDINGS: No fracture. Severe lumbar spondylosis partially visualized lateral curvature. Severe degenerative sc lerosis and spurring at the pubis symphysis. Mild bilateral hip joint generation. Scattered subchondr al sclerosis and spurring. Scattered vascular calcifications. IMPRESSION: [id number] bilateral hip joint generation. Severe lumbar spondylosis and facet arthropathy. Reviewed by: Alexis Vega MD on 07/03/2020 3:51 PM PST Approved by: Alexis Vega MD on 07/03/2020 3:51 PM PST Station ID: [id number]
== END 2020-07-03 15:08 | disposition home or self-care (01) ==
LOC: DI 15:07
PROVIDERS: ATTEND Internal Medicine
DX: M25.552 Pain in left hip (principal); M16.0 Bilateral primary osteoarthritis of hip; M47.816 Spondylosis without myelopathy or radiculopathy, lumbar region

== ENCOUNTER 2020-07-20 09:43 | Outpatient (CLI) | payer MEDICARE | END 2020-07-20 09:44 | disposition critical access hospital (66) | LOC: EMS 09:43 | PROVIDERS: ATTEND Emergency Medicine | DX: R53.1 Weakness (principal); M54.5 Low back pain | CPT/HCPCS: A0425; A0429 ==

== ENCOUNTER 2020-07-20 10:01 | Emergency (ER) | payer MEDICARE ==
[2020-07-20] MEDS ORDERED: SODIUM CHLORIDE 0.9% 1,000 ML IV STA ×2 (10:37)
--- NOTE | 2020-07-20 10:41 | ED Physician Documentation ---
History of Present Illness - Stated complaint Stated Complaint: BACK PX/WEAKNESS - Chief complaint Chief Complaint: Neuro - History obtained from History obtained from: Patient - History of Present Illness Timing: How many weeks ago (several weeks) Pain level max: 0 Pain level now: 0 - Additonal information Additional information: Patient is an 85-year-old female who presents to the emergency department stating that she has had generalized weakness for the past several weeks. She states that nothing makes it better or worse. She states that this started from taking muscle relaxers for back pain. She states that her back pain is much better now. She does however state that she just feels generally weak. She states nothing makes it better or worse. She is unable to be more specific about her symptoms. Review of Systems Ten Systems: 10 systems reviewed and negative Constitutional: denies: Fever, Chills Ears: denies: Ear pain Nose: denies: Rhinorrhea / runny nose, Congestion Throat: denies: Sore throat Cardiac: denies: Chest pain / pressure, Palpitations Respiratory: denies: Cough GI: denies: Abdominal Pain, Nausea, Vomiting, Diarrhea : denies: Dysuria Skin: denies: Rash Musculoskeletal: reports: Back pain (she states her back doesn't currently hurt). denies: Neck pain Neurologic: denies: Headache PD PAST MEDICAL HISTORY - Past Medical History Cardiovascular: Hypertension, High cholesterol, Murmur, Arrhythmia Respiratory: None Endocrine/Autoimmune: None GI: GERD, Hiatal hernia : Other HEENT: Chronic vision loss, Dental implants Psych: Anxiety Musculoskeletal: Osteoarthritis, Osteoporosis, Chronic back pain Derm: None - Past Surgical History Past Surgical History: Yes General: Cholecystectomy, Appendectomy, Bowel surgery, Colonoscopy, EGD Ortho: Knee replacement /EMERGENCY DEPARTMENT: Hysterectomy, Other HEENT: Cataracts - Present Medications Home Medications: Ambulatory Orders Medication Instructions Recorded Confirmed Clopidogrel [Plavix] 75 mg PO DAILY 06/10/15 07/20/20 Carvedilol 12.5 mg PO DAILY 10/01/19 07/20/20 oxyCODONE [Roxicodone] 5 mg PO Q4-6H PRN #20 tablet 10/01/19 07/20/20 - Allergies Allergies/Adverse Reactions: Allergies Allergy/AdvReac Type Severity Reaction Status Date / Time aspirin Allergy CONJUNCTIVI Verified 07/20/20 10:20 TIS Sulfa (Sulfonamide Allergy SWELLING Verified 07/20/20 10:20 Antibiotics) baclofen AdvReac Hallucinati Verified 07/20/20 10:47 ons - Social History Does the pt smoke?: No Smoking Status: Never smoker Does the pt drink ETOH?: No Does the pt have substance abuse?: No - Immunizations Immunizations are current?: No - POLST Patient has POLST: No PD ED PE NORMAL - Vitals Vital signs reviewed: Yes - General General: Alert and oriented X 3, No acute distress, Well developed/nourished - HEENT HEENT: Atraumatic, PERRL, Moist mucous membranes - Neck Neck: Supple, no meningeal sign - Cardiac Cardiac: RRR, Strong equal pulses - Respiratory Respiratory: No respiratory distress, Clear bilaterally - Abdomen Abdomen: Soft, Non tender, Non distended - Derm Derm: Warm and dry - Extremities Extremities: No calf tenderness / cord - Neuro Neuro: Alert and oriented X 3, outside operator 2-12 intact, No motor deficit, No sensory deficit, Normal speech, Other (Normal strength in all four extremities) Eye Opening: Spontaneous Motor: Obeys Commands Verbal: Oriented GCS Score: 15 - Psych Psych: Normal mood, Normal affect Results - Vitals Vitals: Vital Signs - 24 hr 07/20/20 07/20/20 07/20/20 10:03 10:44 12:36 Temperature 35.9 C L Heart Rate 82 77 80 Respiratory 16 25 H 28 H Rate Blood Pressure 150/92 H 142/77 H 179/84 H O2 Saturation 95 94 93 Oxygen O2 Source [] Room air O2 Source Room air - EKG (time done) 1047 Rate: Rate (enter#) (75) Rhythm: NSR, Other (PVC) [place]: Normal Intervals: Normal [place] QRS: Normal Ischemia: Normal ST segments - Labs Labs: Laboratory Tests 07/20/20 07/20/20 07/20/20 10:46 10:46 10:46 WBC 8.6 RBC 4.46 Hgb 12.7 Hct 38.3 MCV 85.9 MCH 28.5 MCHC 33.2 RDW 12.5 Plt Count 281 MPV 9.9 Neut # (Auto) 4.1 Lymph # (Auto) 2.5 [place] # (Auto) 1.5 H Eos # (Auto) 0.4 Baso # (Auto) 0.0 Absolute Nucleated RBC 0.00 Nucleated RBC % 0.0 Manual Slide Review Indicated WBC Morphology Platelet Estimate NORMAL (130-450,000) Platelet Morphology NORMAL APPEARANCE RBC Morph Micro Appear NORMAL APPEARANCE Sodium 134 L Potassium 4.0 Chloride 99 L Carbon Dioxide 24 Anion Gap 11.0 BUN 16 Creatinine 0.7 Estimated GFR (MDRD) 80 L Glucose 126 H Calcium 9.2 Phosphorus 2.8 Magnesium 1.9 Total Bilirubin 0.5 AST 14 ALT 14 Alkaline Phosphatase 71 Troponin I High Sens 4.5 Total Protein 6.7 Albumin 3.6 Globulin 3.1 Albumin/Globulin Ratio 1.2 Lipase 24 Urine Color Urine Clarity Urine pH Ur Specific [place] Urine Protein Urine Glucose (UA) Urine Ketones Urine Occult Blood Urine Nitrite Urine Bilirubin Urine Urobilinogen Ur Leukocyte Esterase Ur Microscopic Review Urine Culture Comments 07/20/20 11:45 WBC RBC Hgb Hct MCV MCH MCHC RDW Plt Count MPV Neut # (Auto) Lymph # (Auto) [place] # (Auto) Eos # (Auto) Baso # (Auto) Absolute Nucleated RBC Nucleated RBC % Manual Slide Review WBC Morphology Platelet Estimate Platelet Morphology RBC Morph Micro Appear Sodium Potassium Chloride Carbon Dioxide Anion Gap BUN Creatinine Estimated GFR (MDRD) Glucose Calcium Phosphorus Magnesium Total Bilirubin AST ALT Alkaline Phosphatase Troponin I High Sens Total Protein Albumin Globulin Albumin/Globulin Ratio Lipase Urine Color YELLOW Urine Clarity CLEAR Urine pH 7.0 Ur Specific [place] 1.010 Urine Protein NEGATIVE Urine Glucose (UA) NEGATIVE Urine Ketones NEGATIVE Urine Occult Blood NEGATIVE Urine Nitrite NEGATIVE Urine Bilirubin NEGATIVE Urine Urobilinogen 0.2 (NORMAL) Ur Leukocyte Esterase NEGATIVE Ur Microscopic Review NOT INDICATED Urine Culture Comments NOT INDICATED PD MEDICAL DECISION MAKING - ED course Complexity details: reviewed old records, reviewed results, re-evaluated patient, considered differential, d/w patient ED course: Patient is an 85-year-old female with generalized weakness today. No acute findings on EKG, telemetry, laboratory testing. She was given IV fluids and does feel better. No objective weakness in the emergency department. She denies any back pain or injury to me. She is moving quite well in the bed. We will continue supportive care and have her follow-up with her doctor. Recommend that she stay off of the muscle relaxants. Patient counseled regarding signs and symptoms for which I believe and urgent re-evaluation would be necessary. Patient with good understanding of and agreement to plan and is comfortable going home at this time This document was made in part using voice recognition software. While efforts are made to proofread this document, sound alike and grammatical errors may occur. Departure - Departure Disposition: 01 Home, Self Care Clinical Impression: Generalized weakness Condition: Good Instructions: ED Weakness [facility] Follow-Up: Ijeoma Rodriges MD [Primary Care Provider] - Within 3 Days Comments: Drink plenty of fluids. Return if you worsen. Follow-up with your doctor for further care. Your laboratory testing is normal today. Discharge Date/Time: 07/20/20 13:01
[2020-07-20 10:50] LABS: BASOPHILS % (AUTO) 0.5 %; EOSINOPHILS # (AUTO) 0.4 10^3/uL (0.0-0.7); EOSINOPHILS % (AUTO) 4.5 %; HCT - HEMATOCRIT 38.3 % (37.0-47.0); HGB - HEMOGLOBIN 12.7 g/dL (12.0-16.0); LYMPHOCYTES # (AUTO) 2.5 10^3/uL (1.5-3.5); LYMPHOCYTES % (AUTO) 29.5 %; MEAN CORPUSCULAR HEMOGLOBIN 28.5 pg (27.0-31.0); MEAN CORPUSCULAR HGB CONC 33.2 g/dL (32.0-36.0); MEAN CORPUSCULAR VOLUME 85.9 fL (81.0-99.0); MEAN PLATELET VOLUME 9.9 fL (7.9-10.8); MONOCYTES # (AUTO) 1.5 10^3/uL (0.0-1.0); MONOCYTES % (AUTO) 17.9 %; NEUTROPHILS # (AUTO) 4.1 10^3/uL (1.5-6.6); NEUTROPHILS % (AUTO) 47.4 %; PLT - PLATELET COUNT 281 10^3/uL (130-450); RED BLOOD COUNT 4.46 10^6/uL (4.20-5.40); RED CELL DISTRIBUTION WIDTH 12.5 % (12.0-15.0); WHITE BLOOD COUNT 8.6 x10^3/uL (4.8-10.8)
[2020-07-20 11:02] LABS: SLIDE REVIEW? Indicated
[2020-07-20 11:08] LABS: PLATELET ESTIMATE, MANUAL NORMAL (130-450,000) (NORMAL); PLATELET MORPHOLOGY NORMAL APPEARANCE (NORMAL); RBC MORPHOLOGY (MULTIPLE) NORMAL APPEARANCE (NORMAL)
[2020-07-20 11:09] LABS: ALBUMIN 3.6 g/dL (3.2-5.5); ALBUMIN/GLOBULIN RATIO 1.2 (1.0-2.2); BILIRUBIN,TOTAL 0.5 mg/dL (0.2-1.0); CALCIUM 9.2 mg/dL (8.5-10.3); CREATININE 0.7 mg/dL (0.4-1.0); MAGNESIUM 1.9 mg/dL (1.7-2.8); PHOSPHORUS 2.8 mg/dL (2.5-4.6); TOTAL PROTEIN 6.7 g/dL (6.7-8.2)
[2020-07-20 12:01] LABS: BILIRUBIN,URINE NEGATIVE (NEGATIVE); GLUCOSE, URINE (UA) NEGATIVE (NEGATIVE); KETONES,URINE (UA) NEGATIVE (NEGATIVE); LEUKOCYTE ESTERASE, URINE NEGATIVE (NEGATIVE); NITRITE,URINE NEGATIVE (NEGATIVE); OCCULT BLOOD,URINE NEGATIVE (NEGATIVE); PROTEIN,URINE NEGATIVE (NEGATIVE); UROBILINOGEN,URINE 0.2 (NORMAL) E.U./dL (NORMAL)
[2020-07-20 12:08] LABS: CLARITY,URINE CLEAR (CLEAR)
[2020-07-20 12:36] VITALS: BP 179/84
== END 2020-07-20 13:01 | disposition home or self-care (01) ==
LOC: EDUNIT# → ED 10:01
DX: R53.1 Weakness (principal); I10 Essential (primary) hypertension
CPT/HCPCS: 36415; 51701; 80053; 81003; 83690; 83735; 84100; 84484; 85025; 93005; 96360; 96361; 99284; U0004; 81001; 87086

== ENCOUNTER 2020-07-24 10:10 | Outpatient (CLI) | payer MEDICARE ==
--- NOTE | 2020-07-24 15:44 | XRAY Report ---
PROCEDURE: Chest 2 View X-Ray INDICATIONS: DYSPNEA,WEAKNESS TECHNIQUE: 2 view(s) of the chest. COMPARISON: Upper GI examination 06/04/19. FINDINGS: Surgical changes and devices: None. Lungs and pleura: No pleural effusions or pneumothorax. Lungs are abnormal with a mild degree of in terstitial prominence, perhaps reflecting a prior smoking history.. Mediastinum: Mediastinal contours are normal. Heart size is at the upper limits of normal. Bones and chest wall: No suspicious bony abnormalities. Soft tissues appear unremarkable. IMPRESSION: Heart size at the upper limits of normal, lung parenchyma shows an interstitial prominen ce potentially a manifestation of prior smoking but it also could be from a very early phase of mild acute CHF. Reviewed by: Jason Herrmann MD on 07/24/2020 2:42 PM [facility] Approved by: Jason Herrmann MD on 07/24/2020 2:42 PM [facility] Station ID: [id number]
== END 2020-07-24 10:11 | disposition home or self-care (01) ==
LOC: DI 10:10
PROVIDERS: ATTEND Internal Medicine
DX: R06.00 Dyspnea, unspecified (principal); R53.1 Weakness

== ENCOUNTER 2020-07-31 10:57 | Emergency (ER) | payer MEDICARE ==
--- NOTE | 2020-07-31 11:52 | ED Physician Documentation ---
PD HPI DYSPNEA - Stated complaint Stated Complaint: WEAK/NAUSEA - Chief complaint Chief Complaint: General - History obtained from History obtained from: Patient, Family - History of Present Illness Timing - onset: How many weeks ago (2) Timing - onset during: Light activity Timing - duration: Weeks (2) Timing - details: Gradual onset, Still present (not improved with recent Zpack antibiotics. Seen by Insurance Investigator 3 days ago and felt not CHF, so to stop the diuretic. To continue abx at that time. Pt not better and done abx 2 days now.) Inciting event(s): URI (congestion and cough with chills and malaise.) Improved by: No: Rest Worsened by: Exertion, Coughing Associated symptoms: Cough, Wheezing. No: Fever, Hemoptysis, Chest pain / discomfort, Bilateral edema Recently seen: Emergency Dept (10 days ago for dyspnea without Dx at that time. Seen by PMD with CXR 7 days ago with question of CHF vs pneumonia and Rx with diuretic and Zpack. Not improved.) Review of Systems Constitutional: reports: Myalgias. denies: Fever, Chills Nose: reports: Congestion. denies: Rhinorrhea / runny nose Throat: denies: Sore throat Cardiac: denies: Chest pain / pressure, Palpitations, Pedal edema, Calf pain Respiratory: reports: Dyspnea, Cough GI: denies: Abdominal Pain, Nausea, Vomiting, Diarrhea, Bloody / black stool Neurologic: reports: Generalized weakness (difficulty getting up and to bathroom, etc. Daughter needing to help her, which is unusual.). 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, Other HEENT: Cataracts - Present Medications Home Medications: Ambulatory Orders Medication Instructions Recorded Confirmed Clopidogrel [Plavix] 75 mg PO DAILY 06/10/15 07/31/20 Carvedilol 12.5 mg PO DAILY 10/01/19 07/31/20 oxyCODONE [Roxicodone] 5 mg PO Q4-6H PRN #20 tablet 10/01/19 07/31/20 Albuterol Sulf [Ventolin Hfa 2 - 3 puffs INH QID #1 inhaler 07/31/20 Inhaler] Doxycycline Hyclate 100 mg PO BID #14 07/31/20 Ondansetron Odt [Zofran] 4 mg TL Q6H PRN #14 tablet 07/31/20 dexAMETHasone [Decadron] 4 mg PO DAILY #5 tablet 07/31/20 - Allergies Allergies/Adverse Reactions: Allergies Allergy/AdvReac Type Severity Reaction Status Date / Time aspirin Allergy CONJUNCTIVI Verified 07/31/20 11:02 TIS Sulfa (Sulfonamide Allergy SWELLING Verified 07/31/20 11:02 Antibiotics) baclofen AdvReac Hallucinati Verified 07/31/20 11:02 ons - Social History Does the pt smoke?: No Smoking Status: Never smoker Does the pt drink ETOH?: No Does the pt have substance abuse?: No - Immunizations Immunizations are current?: No - POLST Patient has POLST: No PD ED PE NORMAL - Vitals Vital signs reviewed: Yes - General General: Alert and oriented X 3, Well developed/nourished - HEENT HEENT: Moist mucous membranes, Pharynx benign - Neck Neck: Supple, no meningeal sign, No adenopathy, No JVD - Cardiac Cardiac: RRR, No murmur, No rub - Respiratory Respiratory: No: Clear bilaterally (mild exp wheezing; no fine crackles. Some coarse sounds left base. ) - Abdomen Abdomen: Soft, Non tender - Derm Derm: Normal color, Warm and dry - Extremities Extremities: No tenderness to palpate, Normal ROM s pain, No edema, No calf tenderness / cord - Neuro Neuro: Alert and oriented X 3, No motor deficit, Normal speech Results - Vitals Vitals: Vital Signs - 24 hr 07/31/20 07/31/20 07/31/20 11:00 11:53 11:57 Temperature 36.1 C L Heart Rate 72 67 67 Respiratory 20 20 Rate Blood Pressure 144/68 H 148/78 H O2 Saturation 95 94 07/31/20 07/31/20 07/31/20 12:40 12:47 14:06 Temperature 36.1 C L Heart Rate 69 70 69 Respiratory 18 22 22 Rate Blood Pressure 156/74 H 174/76 H O2 Saturation 93 93 07/31/20 07/31/20 14:48 15:00 Temperature Heart Rate 77 67 Respiratory 16 18 Rate Blood Pressure 153/69 H O2 Saturation 94 Oxygen O2 Source [Without Activity] Room air O2 Source Room air - EKG (time done) 11:16 Rate: Rate (enter#) (67) Rhythm: NSR [place]: Normal Intervals: Normal VA QRS: Normal Ischemia: Normal ST segments. No: ST elevation c/w ischemia, ST depression - Labs Labs: Laboratory Tests 07/31/20 07/31/20 07/31/20 11:43 11:43 11:43 WBC 9.1 RBC 4.27 Hgb 12.2 Hct 36.9 L MCV 86.4 MCH 28.6 MCHC 33.1 RDW 12.2 Plt Count 372 MPV 9.7 Neut # (Auto) 4.4 Lymph # (Auto) 3.0 Heard # (Auto) 1.2 H Eos # (Auto) 0.4 Baso # (Auto) 0.1 Absolute Nucleated RBC 0.00 Nucleated RBC % 0.0 Sodium 130 L Potassium 4.2 Chloride 97 L Carbon Dioxide 26 Anion Gap 7.0 BUN 13 Creatinine 0.8 Estimated GFR (MDRD) 68 L Glucose 97 Calcium 8.7 Magnesium Total Bilirubin 0.4 AST 17 ALT 14 Alkaline Phosphatase 74 Troponin I High Sens 5.6 B-Natriuretic Peptide Total Protein 6.6 L Albumin 3.4 Globulin 3.2 Albumin/Globulin Ratio 1.1 Lipase 26 Nasal Adenovirus (PCR) Nasal B. parapertussis DNA (PCR) Nasal Coronavir 229E PCR Nasal Coronavir HKU1 PCR Nasal Coronavir NL63 PCR Nasal Coronavir OC43 PCR Nasal Enterovir/Rhinovir PCR Nasal Influenza B PCR Nasal Influenza A PCR Nasal Parainfluen 1 PCR Nasal Parainfluen 2 PCR Nasal Parainfluen 3 PCR Nasal Parainfluen 4 PCR Nasal RSV (PCR) Nasal B.pertussis DNA PCR Nasal C.pneumoniae (PCR) [place] Human Metapneumo PCR Nasal M.pneumoniae (PCR) Nasal SARS-CoV-2 (PCR) 07/31/20 07/31/20 07/31/20 11:43 11:43 11:57 WBC RBC Hgb Hct MCV MCH MCHC RDW Plt Count MPV Neut # (Auto) Lymph # (Auto) Heard # (Auto) Eos # (Auto) Baso # (Auto) Absolute Nucleated RBC Nucleated RBC % Sodium Potassium Chloride Carbon Dioxide Anion Gap BUN Creatinine Estimated GFR (MDRD) Glucose Calcium Magnesium 2.1 Total Bilirubin AST ALT Alkaline Phosphatase Troponin I High Sens B-Natriuretic Peptide 29 Total Protein Albumin Globulin Albumin/Globulin Ratio Lipase Nasal Adenovirus (PCR) NOT DETECTED Nasal B. parapertussis DNA (PCR) NOT DETECTED Nasal Coronavir 229E PCR NOT DETECTED Nasal Coronavir HKU1 PCR NOT DETECTED Nasal Coronavir NL63 PCR NOT DETECTED Nasal Coronavir OC43 PCR NOT DETECTED Nasal Enterovir/Rhinovir PCR NOT DETECTED Nasal Influenza B PCR NOT DETECTED Nasal Influenza A PCR NOT DETECTED Nasal Parainfluen 1 PCR NOT DETECTED Nasal Parainfluen 2 PCR NOT DETECTED Nasal Parainfluen 3 PCR NOT DETECTED Nasal Parainfluen 4 PCR NOT DETECTED Nasal RSV (PCR) NOT DETECTED Nasal B.pertussis DNA PCR NOT DETECTED Nasal C.pneumoniae (PCR) NOT DETECTED [place] Human Metapneumo PCR NOT DETECTED Nasal M.pneumoniae (PCR) NOT DETECTED Nasal SARS-CoV-2 (PCR) NOT DETECTED - Rads (name of study) cxr Radiology: Prelim report reviewed (Interstitial changes consistent with pneumonitis versus congestive failure.), See rad report chest CT-A Radiology: Prelim report reviewed (No PEs. Patchy groundglass interstitial changes consistent with pneumonia. Does not appear consistent with CHF. No effusions nor masses.), See rad report PD MEDICAL DECISION MAKING - ED course Complexity details: reviewed results (Interstitial patchy groundglass on CT c/w pneumonia. No PE nor apparent CHF.), re-evaluated patient (improved some dyspnea with nebulizer treatment. ), considered differential (c/w worsening pneumonia, but can assess for CHF/[place] with labs, and assess CXR for progression as well. ), d/w patient, d/w family (daughter), d/w data integrity consultant (Hospitalist, who felt there was not admission criteria. ), other (Her CUrb-65 score is low at 1. General weakness but able to get to bathroom here. Does not meet admission criteria. ) Departure - Departure Disposition: 01 Home, Self Care Clinical Impression: Acute pneumonia, General weakness Dyspnea Qualifiers: Dyspnea type: shortness of breath Qualified Code(s): R06.02 - Shortness of breath Condition: Stable Record reviewed to determine appropriate education?: Yes Instructions: ED Pneumonia Adult Follow-Up: Ijeoma Rodriges MD [Primary Care Provider] - Prescriptions: dexAMETHasone [Decadron] 4 mg PO DAILY #5 tablet Doxycycline Hyclate 100 mg PO BID #14 Albuterol Sulf [Ventolin Hfa Inhaler] 2 - 3 puffs INH QID #1 inhaler Ondansetron Odt [Zofran] 4 mg TL Q6H PRN #14 tablet PRN Reason: Nausea / Vomiting Comments: Stay well-hydrated. Use the albuterol inhaler 2 to 3 puffs 4 times a day regularly for the next week or so. Ondansetron if needed for nausea. Consider taking it prior to your antibiotics to reduce upset stomach from those. Doxycycline antibiotic twice daily for a week. Decadron steroid for inflammation of the airways daily for 5 more days. Follow-up with your primary care over the next few days, call for an appointment. Your CT scan shows small patchy infiltrates consistent with pneumonia. No signs of CHF at this time. Discharge Date/Time: 07/31/20 14:56
--- NOTE | 2020-07-31 12:01 | XRAY Report ---
PROCEDURE: Chest 1 View X-Ray INDICATIONS: Chest pain TECHNIQUE: One view of the chest was acquired. COMPARISON: 07/24/2020 FINDINGS: Surgical changes and devices: None. Lungs and pleura: Small bilateral pleural fluid collections. Interval worsening of interstitial promi nence. There is mild cephalization of pulmonary vasculature. Mediastinum: Mediastinal contours appear normal. Heart is enlarged Bones and chest wall: No suspicious bony lesions. Overlying soft tissues appear unremarkable. IMPRESSION: Radiographic findings compatible CHF. Reviewed by: Shasha Orosco MD, PhD on 07/31/2020 12:00 PM PDT Approved by: Shasha Orosco MD, PhD on 07/31/2020 12:00 PM PDT Station ID: [id number]
[2020-07-31 12:04] LABS: BASOPHILS # (AUTO) 0.1 10^3/uL (0.0-0.1); BASOPHILS % (AUTO) 0.7 %; EOSINOPHILS # (AUTO) 0.4 10^3/uL (0.0-0.7); HCT - HEMATOCRIT 36.9 % (37.0-47.0); HGB - HEMOGLOBIN 12.2 g/dL (12.0-16.0); LYMPHOCYTES % (AUTO) 33.5 %; MEAN CORPUSCULAR HEMOGLOBIN 28.6 pg (27.0-31.0); MEAN CORPUSCULAR HGB CONC 33.1 g/dL (32.0-36.0); MEAN CORPUSCULAR VOLUME 86.4 fL (81.0-99.0); MEAN PLATELET VOLUME 9.7 fL (7.9-10.8); MONOCYTES # (AUTO) 1.2 10^3/uL (0.0-1.0); MONOCYTES % (AUTO) 13.7 %; NEUTROPHILS # (AUTO) 4.4 10^3/uL (1.5-6.6); NEUTROPHILS % (AUTO) 47.8 %; PLT - PLATELET COUNT 372 10^3/uL (130-450); RED BLOOD COUNT 4.27 10^6/uL (4.20-5.40); RED CELL DISTRIBUTION WIDTH 12.2 % (12.0-15.0); WHITE BLOOD COUNT 9.1 x10^3/uL (4.8-10.8)
[2020-07-31] MEDS ORDERED: ALBUTEROL NEB 2.5 MG/3 ML INH STA (12:21)
[2020-07-31] MEDS ORDERED: cefTRIAXone 1 GM VIAL IVP STA (12:21)
[2020-07-31 12:24] LABS: ALBUMIN 3.4 g/dL (3.2-5.5); ALBUMIN/GLOBULIN RATIO 1.1 (1.0-2.2); BILIRUBIN,TOTAL 0.4 mg/dL (0.2-1.0); CALCIUM 8.7 mg/dL (8.5-10.3); CREATININE 0.8 mg/dL (0.4-1.0); POTASSIUM 4.2 mmol/L (3.5-5.0); TOTAL PROTEIN 6.6 g/dL (6.7-8.2)
[2020-07-31] MEDS ORDERED: IOVERSOL 320 100 ML VIAL IVP ONE ×2 (13:23→14:41)
[2020-07-31 13:27] LABS: B. PARAPERTUSSIS- RESP PCR PAN NOT DETECTED; B. PERTUSSIS- RESP PCR PANEL NOT DETECTED; C. PNEUMONIAE- RESP PCR PANEL NOT DETECTED; CORONAVIRUS 229E-RESP PCR NOT DETECTED; CORONAVIRUS HKU1-RESP PCR NOT DETECTED; CORONAVIRUS NL63-RESP PCR NOT DETECTED; CORONAVIRUS OC43-RESP PCR NOT DETECTED; HUMAN METAPNEUMOVIRUS NOT DETECTED; INFLUENZA A- RESP PCR PANEL NOT DETECTED; INFLUENZA B - RESP PCR PANEL NOT DETECTED; M. PNEUMONIAE- RESP PCR PANEL NOT DETECTED; PARAINFLUENZA VIRUS 1 NOT DETECTED; PARAINFLUENZA VIRUS 2 NOT DETECTED; PARAINFLUENZA VIRUS 3 NOT DETECTED; PARAINFLUENZA VIRUS 4 NOT DETECTED; RHINOVIRUS/ENTEROVIRUS NOT DETECTED; RSV- RESP PCR PANEL NOT DETECTED; SARS-CoV-2 -RESP PCR PANEL NOT DETECTED
--- NOTE | 2020-07-31 14:05 | CT Report ---
PROCEDURE: ANGIO CHEST W/WO INDICATIONS: dyspnea and CHF apperance vs pneumonia CXR CONTRAST: IV CONTRAST: Optiray 320 ml: 80 PO CONTRAST: *NO PO CONTRAST TECHNIQUE: After the administration of intravenous contrast, 2 mm thick sections acquired from the pulmonary api brina to the posterior costophrenic angles. 3-dimensional maximum intensity projection (MIP) coronal a nd sagittal reformats were then acquired through the thorax. For radiation dose reduction, the follow ing was used: automated exposure control, adjustment of mA and/or kV according to patient size. COMPARISON: Chest x-ray 07/31/1930, CT chest 04/21/ FINDINGS: Image quality: Excellent. Pulmonary arteries: Pulmonary arteries are normal in size, and demonstrate no intraluminal filling d efects to suggest central pulmonary embolism. Lungs and pleura: There are bilateral groundglass opacities most prominent in the right upper lobe. N o effusions or thorax. No pleural effusions or pneumothorax. Central and peripheral airways are rico nt. Mediastinum: Heart size is normal, without pericardial effusion. No mediastinal or hilar adenopathy . Thoracic aorta is normal in caliber and enhancement. Esophagus is normal in caliber, without hiat al hernia. Bones and chest wall: No suspicious bony lesions. Ribs and thoracic spine appear intact throughout. The thyroid is normal. No axillary or supraclavicular adenopathy. Abdomen: Low-attenuation hepatic foci are unchanged. Otherwise, visualized upper abdominal solid org ans appear normal in the early arterial phase of enhancement. IMPRESSION: 1. No pulmonary embolism. 2. Scattered bilateral groundglass opacities within the lungs suggestive of inflammation/infection in cluding pneumonia. Superimposed atelectasis and/or edema cannot be excluded. Reviewed by: Alyson Ely MD on 07/31/2020 2:04 PM PDT Approved by: Alyson Ely MD on 07/31/2020 2:04 PM PDT Station ID: [id number]
[2020-07-31] MEDS ORDERED: ONDANSETRON 4 MG/2 ML VIAL IVP STA (14:34)
[2020-07-31] MEDS ORDERED: DOXYCYCLINE 100 MG TABLET PO STA (14:34)
[2020-07-31] MEDS ORDERED: ALBUTEROL 1 PUFF INH STA (14:34)
[2020-07-31 15:25] VITALS: BP 153/69
== END 2020-07-31 14:56 | disposition home or self-care (01) ==
LOC: ED 10:57
DX: J18.9 Pneumonia, unspecified organism (principal); R53.1 Weakness; R06.02 Shortness of breath; Z20.822 Contact with and (suspected) exposure to COVID-19
CPT/HCPCS: 36415; 71045; 71275; 80053; 83690; 83735; 83880; 84484; 85025; 87631; 93005; 94640; 96374; 96375; 99283; 99284; A9270; Q9967; 0202U

== ENCOUNTER 2020-08-19 10:57 | Outpatient (CLI) | payer MEDICARE ==
[2020-08-19] MEDS ORDERED: ALBUTEROL 1 PUFF INH STA (12:18)
--- OUTSIDE RECORDS SUMMARY | 2020-08-23 02:30 | EXTERNAL MEDICAL SUMMARY RPT | Continuity of Care Document ---
:1935 Demographics Phone Unavailable Preferred Language Unknown Marital Status Unknown Yazidi Affiliation Unknown Race Unknown Ethnic Group Unknown Author Organization Mobile Address [address] [id number] Phone Social History date description facility [phone]
== END 2020-08-19 10:58 | disposition home or self-care (01) ==
LOC: RT 10:57
PROVIDERS: ATTEND Internal Medicine
DX: R06.09 Other forms of dyspnea (principal)
CPT/HCPCS: 94060